=== PATIENT | male | born 1955 ===

== ENCOUNTER 2018-01-03 10:26 | Inpatient (IN) | payer OTHER ==
[2018-01-03] VITALS (11 sets, daily range): BP systolic 117–143; BP diastolic 65–88
[~2018-01-03] VITALS: Ht 177.8 cm; Wt 81.6 kg
[~2018-01-03 10:26] MED LIST: Bacitracin 50000 Units Vial ONE; Bupivacaine 0.5% Inj 30 ml vial INJ ONE; Thrombin 5000 units TOPIC ONE; Vancomycin 1gm inj IVPB ONE
[2018-01-03] MEDS ORDERED: METOPROLOL SUCC50 MG ORAL (11:29)
[2018-01-03] MEDS ORDERED: GLYBURIDE-METF1 EAC1 PO (11:29)
[2018-01-03] MEDS ORDERED: BENAZEPRIL-HCT1 EAC1 ORAL (11:29)
--- NOTE | 2018-01-03 12:33 | Pre-Procedure Note/Attestation ---
Pre-Procedure Note/Attestation Complete Prior to Procedure Procedure Narrative: RIGHT L4-5 MICRODECOMPRESSION AND MICRODISCECTOMY Attestation I attest that I discussed the nature of the procedure; its benefits; risks and complications; and alternatives (and the risks and benefits of such alternatives ), prior to the procedure, with the patient (or the patient's legal mechanical service representative). I attest that, if there was a reasonable possibility of needing a blood transfusion, the patient (or the patient's legal mechanical service representative) was given the [facility] standardized written summary, pursuant to the Javi Adrian Blood Safety Act ([place] Health and Safety Code # 1645, as amended). I attest that I re-evaluated the patient just prior to the surgery and that there has been no change in the patient's H&P, except as documented below: BAL YOUSIF Jan 03, 2018 12:33
[2018-01-03] MEDS ORDERED: HYDROcodone/Acetamin 7.5/325 tab ORAL PRN (12:45)
[2018-01-03] MEDS ORDERED: HYDROmorphone 1mg/ml Carpuject SUBQ PRN (12:45)
[2018-01-03] MEDS ORDERED: Naloxone 0.4mg/ml Inj IVP PRN (12:45)
[2018-01-03] MEDS ORDERED: HYDROmorphone 1mg/ml Carpuject IVP PRN (12:45)
[2018-01-03] MEDS ORDERED: Norco 5mg/325mg tab ORAL PRN (12:45)
[2018-01-03] MEDS ORDERED: Zemuron 50mg/5ml Inj IV ONE (13:00)
[2018-01-03] MEDS ORDERED: LR 1000ml ONE (13:00)
[2018-01-03] MEDS ORDERED: Midazolam 2mg/2ml Inj ONE (13:00)
[2018-01-03] MEDS ORDERED: Propofol 1,000mg/ 100ml btl IV ONE (13:00)
[2018-01-03] MEDS ORDERED: Sterile Water Irrig 1000ml IRRIG ONE (13:00)
[2018-01-03] MEDS ORDERED: fentaNYL 100 mcg/2 mL IV ONE (13:00)
[2018-01-03] MEDS ORDERED: LR 1000ml 1,000 ML IVLG SCH (14:29)
[2018-01-03] MEDS ORDERED: DiphenhydrAMINE 50mg/ml Inj IVP PRN (14:30)
[2018-01-03] MEDS ORDERED: LORazepam Inj 2mg/ml 1ml IV PRN (14:30)
--- NOTE | 2018-01-03 14:38 | Anethesia Preoperative Eval ---
Anesthesia Pre-op PMH/ROS General Date of Evaluation: Jan 03, 2018 Anesthesiologist: Gertrudis ASA Score: ASA 3 Mallampati Score Class I : Soft palate, uvula, fauces, pillars visible Class II: Soft palate, uvula, fauces visible Class III: Soft palate, base of uvula visible Class IV: Only hard plate visible Mallampati Classification: Class III Surgeon: Jaylene Diagnosis: Back pain Surgical Procedure: Microdiscectomy L4-5 Family History: no anesthesia problems Allergies: Coded Allergies: No Known Allergies (Unverified , 12/31/17) Medications: see eMAR Past Medical History Cardiovascular: Reports: HTN; Denies: CAD, DC, valve dz, arrhythmia, other Pulmonary: Denies: asthma, COPD, ALEC, other Gastrointestinal/Genitourinary: Denies: GERD, CRI, ESRD, other Neurologic/Psychiatric: Denies: dementia, CVA, depression/anxiety, TIA, other Endocrine: Reports: DM; Denies: hypothyroidism, steroids, other HEENT: Reports: cataract (L), cataract (R); Denies: glaucoma, YAKUTAT (L), YAKUTAT (R), other Hematology/Immune: Denies: anemia, DVT, bleeding disorder, other Musculoskeletal/Integumentary: Denies: OA, RA, DJD, DDD, edema, other PMH Narrative: HTN, DM PSxH Narrative: Cataract, sinus, cervical spine Anesthesia Pre-op Phys. Exam Physician Exam Last Vital Signs Date Time Temp Pulse Resp B/P (MAP) Pulse Ox O2 Delivery O2 Flow Rate FiO2 01/03/18 11:29 97.2 64 20 143/88 97 Room Air 97.2 Constitutional: NAD Neurologic: CN 2-12 intact Cardiovascular: RRR, no M/R/G Respiratory: CTA Gastrointestinal: S/NT/ND Airway Exam Mallampati Score: Class III MO: full ROM: full Teeth: intact Anesthesia Pre-op A/P Labs WNL Studies Pre-op Studies: EKG - SR Risk Assessment & Plan Assessment: Class 3 patient for microdiscectomy Plan: GETA, possible glide scope intubation Status Change Before Surgery: No Pre-Antibiotics Drug: Ancef Given Within 1 Hr of Incision: Yes Time Given: 13:45 NAIDA FISHER M.D. Jan 03, 2018 14:37
--- NOTE | 2018-01-03 14:39 | Immediate Post-Op Evaluation ---
Immediate Post-Op Evalulation Immediate Post-Op Evalulation Procedure: Microdiscectomy L4-5 Date of Evaluation: Jan 03, 2018 Time of Evaluation: 16:15 IV Fluids: 600 Estimated Blood Loss: 25 Blood Pressure Systolic: 120 Blood Pressure Diastolic: 65 Pulse Rate: 73 Respiratory Rate: 16 O2 Sat by Pulse Oximetry: 100 Temperature (Fahrenheit): 97.9 Pain Score (1-10): 0 Nausea: No Vomiting: No Complications No complication Patient Status: reacts, patent, extubated, none Hydration Status: adequate Drug: Ancef Given Within 1 Hr of Incision: Yes Time Given: 13:45 NAIDA FISHER M.D. Jan 03, 2018 14:39
--- NOTE | 2018-01-03 16:03 | Brief Operative Note ---
Immediate Post Operative Note Operative Note Pre-op Diagnosis: LUMBAR RADICULOPATHY Procedure: R L4-5 MICRODECOMPRESSION AND MICRODISCECTOMY Post-op Diagnosis: same as pre-op Findings: consistent w/pre-op dx studies Surgeon: NICA Wire Temperer: OMAYRA Anesthesiologist: PHILLIP Anesthesia: general Specimen: yes Complications: none Condition: stable Fluids: 500CC Estimated Blood Loss: minimal - 10CC Drains: none Implant(s) used?: No BAL YOUSIF Jan 03, 2018 16:03
--- NOTE | 2018-01-03 16:19 | Diagnostic Imaging Report ---
Indication: Back pain, intraoperative imaging Technique: Intraoperative images Comparison: none Findings: Initial images demonstrate localizing needles posterior to the lower lumbar spine, and subsequent images demonstrate tools projected over the lower lumbar spine Impression: Intraoperative imaging, as described
[2018-01-03] MEDS: Hydromorphone 0.5mg/0.5ml inj IVP PRN ×2 (16:32→16:56)
[2018-01-03] MEDS ORDERED: D5 1/2NS 1,000 ML IV SCH (18:30)
[2018-01-03] MEDS: Docusate 100mg cap ORAL SCH (20:59)
[2018-01-03] MEDS ORDERED: Metoprolol Succinate XL 50mg tab ORAL SCH (21:00)
[2018-01-03] MEDS: NovoLOG Insulin Flexpen SUBQ SCH (21:06)
[2018-01-03] MEDS: ceFAZolin sod 1 GM in D5W 110 ML IV SCH (22:38)
[2018-01-04] VITALS: BP 118/70
--- NOTE | 2018-01-04 01:16 | Operative Note - Dictated ---
DATE OF OPERATION: 01/03/2018 PREOPERATIVE DIAGNOSES: L4-L5 disk protrusion with stenosis and right lower extremity radiculopathy. POSTOPERATIVE DIAGNOSES: L4-L5 disk protrusion with stenosis and right lower extremity radiculopathy. PROCEDURES PERFORMED: 1. Right L4-L5 interlaminar laminotomy, medial facetectomy, foraminotomy, and microdiskectomy. 2. Intraoperative use of microscope. 3. Intraoperative use of fluoroscopy. 4. SSEP and EMG monitoring. SURGEON: Adis Mariee M.D. PROJECT HIRE: Rosendo Edmondson M.D. ANESTHESIA: General endotracheal anesthesia. ANESTHESIOLOGIST: Javi Caba M.D. INTRAOPERATIVE FINDINGS: L4-L5 disk protrusion with impingement on the traversing right L5 nerve roots and foraminal stenosis for the exiting L4 nerve root with lateral recess and foraminal stenosis. EBL: 10 mL. FLUIDS: 500 mL of crystalloid. INDICATIONS: This is a pleasant male, who has failed nonoperative treatment and options for above treatment was given. Risks, alternatives, and benefits were discussed with the patient at length. Risks include, but are not limited to anesthesia complications including , medical complications including liver, kidney, cardiopulmonary deficits, bleeding, infection, dural tear, CSF leak, nerve root injury, pars fracture, instability, reherniation as well as continued symptoms. The patient understood and wished to proceed. DESCRIPTION OF OPERATION: The patient was brought into the operating room supine on a stretcher. Subsequently, appropriate IV lines were placed and 2 g of Ancef was administered. Anesthesia was induced. The patient was successfully intubated. Sequential compression devices were placed into the bilateral lower extremities. The patient was gently turned prone on the Delvis frame table. All bone bony prominences were well padded and the abdomen was assured to lay freely. The L4-L5 interspace was positively identified via fluoroscopy and indelible marker was used to myrna the midline. The patient was prepped and draped in the usual sterile fashion with alcohol, ChloraPrep, and Ioban draping. Me and my conservation assistant were also prepped and gowned appropriately. At this point, a midline incision was carried out over L4-L5. Intraoperatively sterilely draped microscope was brought into the field and with monopolar cautery, a subperiosteal dissection of the L4 and L5 lamina was done. The lateral joint capsule was well preserved and a supervisor belt and link assembly retractor was set in place. A radiopaque marker was placed at the level of the pedicle and the L5 pedicle was caught and positively identified via lateral fluoroscopy and thus the L4-L5 level was confirmed. At this point, the interlaminar laminotomy, medial facetectomy, and foraminotomy were done with the use of #2 through #5 Kerrison punches, a high-speed drill, and straight and curved curettes. There were significant adhesions at the ligamentum flavum through the common dural sac. The ligamentum was carefully teased off the dura. There was part of the ligamentum that remained attached to the dura and it was deemed too dangerous to remove the ligamentous portion there. Nevertheless, there was an excellent decompression of the common dural sac and central canal by undercutting the lamina, the subarticular/lateral recess as well as the foramina. Multiple cuts with #2 Kerrison punch was done into the foramina for an adequate foraminal decompression to the exiting right L4 nerve root. Now, a [place] #4 and nerve root retractor were used to gently retract the neural elements and a disk protrusion was found impinging on the traversing L5 nerve root. With the use of a #11 scalpel, a cruciate incision was made and with the use of a Luis rongeurs, pituitary rongeurs, Peapod rongeur, nerve hook as well as Terri curette, a microdiskectomy was accomplished until all loose disk material was removed and the floor of the canal was flat and there was no further impingement or stenosis in the canal or the foramina or the lateral recess or subarticular recess. At this point, a Valsalva 40 mmHg was done. There was no CSF leak. Copious triple antibiotic disk space irrigation was done. All loose debri was removed and at this point attention was diverted to closure. A 0.5 grams of vancomycin powder was placed sub and suprafascially. The dorsal lumbar fascia was closed with #1 Vicryl sutures in watertight interrupted fashion. The subdural and subcuticular layers were closed with 2-0 Vicryl sutures. The skin was closed with Dermabond. Sterile dressing and tape was placed. The patient was turned supine and was extubated in stable condition. She was found to be neurovascularly intact in the recovery room. She was admitted for monitoring. Adis Mariee M.D. DR: Khushi JOB#: [id number] CC:
[2018-01-04] MEDS: HYDROcodone/Acetamin 7.5/325 tab ORAL PRN ×2 (01:39→08:01)
[2018-01-04 04:00] VITALS: BP 109/62
[2018-01-04] MEDS: ceFAZolin sod 1 GM in D5W 110 ML IV SCH ×2 (04:47→13:03)
[2018-01-04] MEDS: NovoLOG Insulin Flexpen SUBQ SCH ×2 (06:56→12:22)
[2018-01-04 08:00] VITALS: BP 107/61
[2018-01-04] MEDS: Docusate 100mg cap ORAL SCH (08:03)
[2018-01-04] MEDS ORDERED: Benazepril 10mg tab ORAL SCH (09:00)
[2018-01-04] MEDS ORDERED: hydroCHLOROthiazide 12.5mg TAB ORAL SCH (09:00)
--- NOTE | 2018-01-04 09:54 | 48 Hour Post Anesthesia Eval ---
Post Anesthesia Evaluation Procedure: Microdiscectomy L4-5 Date of Evaluation: Jan 04, 2018 Time of Evaluation: 12:15 Blood Pressure Systolic: 107 0: 61 Pulse Rate: 68 Respiratory Rate: 17 Temperature (Fahrenheit): 98.1 O2 Sat by Pulse Oximetry: 96 Airway: patent Nausea: No Vomiting: No Pain Intensity: 6 If pain is > 6 Comment: Discussed with nurse. Felix given Hydration Status: adequate Cardiopulmonary Status: Stable Mental Status/LOC: patient returned to baseline Follow-up Care/Observations: As per surgery Post-Anesthesia Complications: No anesthetic complication Follow-up care needed: N/A NAIDA FISHER M.D. Jan 04, 2018 09:54
[2018-01-04 11:46] VITALS: BP 109/57
[2018-01-04] MEDS ORDERED: NORCO 5-325 TA1 EACH ORAL (12:49)
[2018-01-04] MEDS ORDERED: NAPROSYN500 M1 ORAL (12:50)
--- NOTE | 2018-01-04 18:21 | Discharge Summary ---
Discharge Summary Hospital Course Date of Admission Jan 03, 2018 at 10:26 Date of Discharge Jan 04, 2018 at 13:55 Admitting Diagnosis HPI Julio C Tucker is a 62 year old male who was admitted on Jan 03, 2018 at 10:26 for Back Pain Hospital Course [id number] Discharge Discharge Disposition Patient was discharged to Home (01) Hollie Mcgarry NP Jan 04, 2018 18:21
[2018-01-05] MEDS ORDERED: Tubing IV Secondary IV ONE (08:00)
--- NOTE | 2018-01-05 11:15 | Discharge Summary 2 SIG ---
DATE OF ADMISSION: 01/03/2018 DATE OF DISCHARGE: 01/04/2018 BRIEF HOSPITAL COURSE: The patient is a 62-year-old male, who was diagnosed with L4-L5 disc protrusion and right lower extremity radiculopathy, who had failed non-operative treatment, was admitted on 01/03/2018 and underwent right L4-L5 microdecompression and microdiskectomy. He tolerated the procedure well and postoperatively was admitted for pain management. He was placed on SCDs for DVT prophylaxis. He was initially given clear liquid diet and advanced as tolerated. He was encouraged use of incentive spirometry. He was resumed on his home medications and was continued on benazepril and metoprolol. He was seen by PT and OT. The patient was eventually cleared for discharge home. FINAL DIAGNOSES: 1. L4-L5 disc protrusion with stenosis and right lower extremity radiculopathy. 2. Status post right L4-L5 intralaminar laminotomy, medial facetectomy, foraminotomy, and microdiskectomy. Refer to operative report. DISPOSITION: The patient was discharged home. DISCHARGE MEDICATIONS: Refer to medication list. DISCHARGE INSTRUCTIONS: Follow up in a week as outpatient. Adis Mariee M.D. I have been assigned to dictate discharge summary on this account and I was not involved in the patient's management. Hollie Mcgarry N.P. DR: KAREN JOB#: [id number] CC: ANISHA
== END 2018-01-04 13:55 | disposition home or self-care (01) | DRG 520 ==
LOC: SDSOVERFLO 10:26 → 3E 17:47
PROC: 01NB0ZZ Release Lumbar Nerve, Open Approach (ICD-10-PCS; principal; 2018-01-03 12:30)
PROC: 0SB20ZZ Excision of Lumbar Vertebral Disc, Open Approach (ICD-10-PCS; principal; 2018-01-03 12:30)
PROC: 00NY0ZZ Release Lumbar Spinal Cord, Open Approach (ICD-10-PCS; principal; 2018-01-03 12:30)
DX: M51.16 Intervertebral disc disorders with radiculopathy, lumbar region (principal); M48.061 Spinal stenosis, lumbar region without neurogenic claudication; I10 Essential (primary) hypertension; E11.9 Type 2 diabetes mellitus without complications; E66.9 Obesity, unspecified; Z68.25 Body mass index [BMI] 25.0-25.9, adult
CPT/HCPCS: 36415; 72020; 76001; 82962; 83036; 86850; 86900; 86901; 87081; 94003; 94150; J1815; J2250; J2405